=== PATIENT | male | born 1965 | race Caucasian/White ===

== ENCOUNTER 2019-04-04 06:35 | Emergency (ER) | payer OTHER ==
[~2019-04-04] VITALS: Ht 175.3 cm; Wt 95.2 kg
[2019-04-04] MEDS ORDERED: ASPIRIN 81 MG TABLET CHEW PO ONE (07:00)
--- NOTE | 2019-04-04 07:00 | NUR ---
Report to Destini HENDRIKCSON.
[2019-04-04] MEDS ORDERED: ASPIRIN 81 MG TABLET CHEW ONE (07:03)
[2019-04-04 07:09] LABS: BASOPHILS # (AUTO) 0.02 x10^3/uL (0-0.1); BASOPHILS % (AUTO) 0 % (0-1); EOSINOPHILS # (AUTO) 0.04 x10^3/uL (0-0.4); EOSINOPHILS % (AUTO) 1 % (1-7); LYMPHOCYTES # (AUTO) 1.62 x10^3/uL (1-3.4); LYMPHOCYTES % (AUTO) 29 % (22-44); MD NO; MEAN CORPUSCULAR HEMOGLOBIN 27.8 pg (27.5-34.5); MEAN CORPUSCULAR HGB CONC 33.1 g/dL (33.2-36.2); MEAN CORPUSCULAR VOLUME 84.2 fL (81-97); MEAN PLATELET VOLUME 9.8 fL (7.4-10.4); MONOCYTES # (AUTO) 0.25 x10^3/uL (0.2-0.8); MONOCYTES % (AUTO) 5 % (2-9); NEUTROPHILS # (AUTO) 3.68 x10^3/uL (1.8-6.8); NEUTROPHILS % (AUTO) 66 % (42-75); PLATELET COUNT 185 x10^3/uL (130-400); RED BLOOD COUNT 6.21 x10^6/uL (4.38-5.82); RED CELL DISTRIBUTION WIDTH 12.6 % (9.4-14.8)
--- NOTE | 2019-04-04 07:18 | NUR ---
PT RESTING ON GURNEY. NO CP REPORTED AT THIS TIME, VSS. PT STATES HE HAS "SOME PRESSURE IN CHEST" PT TOOK 325MG OF ASA AT HOME PRIOR TO COMING TO ER. REDD
[2019-04-04 07:21] LABS: ANION GAP 4 mmol/L (5-15); CALCIUM 9.5 mg/dL (8.5-10.1); CHLORIDE 102 mmol/L (98-107); CREATININE 1.21 mg/dL (0.7-1.3)
[2019-04-04 07:24] LABS: TROPONIN I < 0.015 ng/mL (0.000-0.045)
--- NOTE | 2019-04-04 08:11 | NUR ---
PT RESTING ON GURNEY AT THIS TIME, VSS, NAD. NO NEEDS AT THIS TIME
--- NOTE | 2019-04-04 08:39 | NUR ---
PT RESTING IN BED. PER REPEAT TROP AT 9:30
--- NOTE | 2019-04-04 09:24 | NUR ---
NO NEEDS AT THIS TIME, NAD, WILL CTM
[2019-04-04 10:27] LABS: TROPONIN I < 0.015 ng/mL (0.000-0.045)
[2019-04-04 10:28] VITALS: BP 102/60
--- NOTE | 2019-04-04 10:29 | NUR ---
AWAITING RESULT OF REPEAT TROPONIN LEVEL, PT RESTING, NAD.
--- NOTE | 2019-04-04 11:44 | NUR ---
PT WITH NEG TROP, D/C ORDERS RECIEVED. PT GIVEN DISCHARGE INSTRUCTIONS, UNDERSTANDING STATED. PT TO CHECK OUT WITH ALL BELONGINGS IN PLACE
== END 2019-04-04 11:48 | disposition home or self-care (01) ==
LOC: ED 09:40
DX: R07.89 Other chest pain (principal); R00.2 Palpitations; E11.65 Type 2 diabetes mellitus with hyperglycemia; E78.5 Hyperlipidemia, unspecified
CPT/HCPCS: 36415; 71046; 80048; 82040; 82962; 84484; 85025; 93005; 99284

== ENCOUNTER 2019-04-22 09:04 | Outpatient (CLI) | payer OTHER ==
[2019-04-22 09:20] LABS: BASOPHILS # (AUTO) 0.03 x10^3/uL (0-0.1); BASOPHILS % (AUTO) 1 % (0-1); EOSINOPHILS # (AUTO) 0.03 x10^3/uL (0-0.4); EOSINOPHILS % (AUTO) 0 % (1-7); LYMPHOCYTES # (AUTO) 1.99 x10^3/uL (1-3.4); LYMPHOCYTES % (AUTO) 29 % (22-44); MD NO; MEAN CORPUSCULAR HEMOGLOBIN 27.9 pg (27.5-34.5); MEAN CORPUSCULAR HGB CONC 33.1 g/dL (33.2-36.2); MEAN CORPUSCULAR VOLUME 84.3 fL (81-97); MEAN PLATELET VOLUME 9.2 fL (7.4-10.4); MONOCYTES # (AUTO) 0.33 x10^3/uL (0.2-0.8); MONOCYTES % (AUTO) 5 % (2-9); NEUTROPHILS # (AUTO) 4.47 x10^3/uL (1.8-6.8); NEUTROPHILS % (AUTO) 65 % (42-75); PLATELET COUNT 203 x10^3/uL (130-400); RED BLOOD COUNT 6.41 x10^6/uL (4.38-5.82); RED CELL DISTRIBUTION WIDTH 13.3 % (9.4-14.8)
[2019-04-22 09:28] LABS: ANION GAP 6 mmol/L (5-15); CALCIUM 9.2 mg/dL (8.5-10.1); CHLORIDE 105 mmol/L (98-107)
[2019-04-22 09:29] LABS: ALANINE AMINOTRANSFERASE 29 U/L (12-78); ALBUMIN 4.2 g/dL (3.4-5.0); CHOLESTEROL, TOTAL 160 mg/dL (140-239)
[2019-04-22 09:31] LABS: ALKALINE PHOSPHATASE 89 U/L (45-117); BILIRUBIN,TOTAL 0.6 mg/dL (0.2-1.0); HDL CHOL % 25 % (26-37); HDL CHOLESTEROL (DIRECT) 40 mg/dL (40-60); LDL CHOLESTEROL,CALCULATED 103 mg/dL (54-169); LDL/HDL RATIO 2.6 (0.5-3.0); TOTAL PROTEIN 7.6 g/dL (6.4-8.2); TRIGLYCERIDES 85 mg/dL (50-200); VLDL CHOLESTEROL 17 mg/dL (0-25)
[2019-04-22 12:25] LABS: HEMOGLOBIN A1C 10.7 % (4.2-6.3)
== END 2019-04-22 23:59 | disposition home or self-care (01) ==
LOC: LAB 09:04
PROVIDERS: ATTEND Family Medicine
DX: E11.9 Type 2 diabetes mellitus without complications (principal)
CPT/HCPCS: 36415; 80053; 80061; 82043; 83036; 85025

== ENCOUNTER → 2020-10-14 | Outpatient (CLI) | payer OTHER | END | disposition home or self-care (01) | LOC: RAD 18:11 | PROVIDERS: ATTEND Family Medicine | DX: M47.27 Other spondylosis with radiculopathy, lumbosacral region (principal); M51.16 Intervertebral disc disorders with radiculopathy, lumbar region | CPT/HCPCS: 72114 ==

== ENCOUNTER 2021-01-05 12:27 | Emergency (ER) | payer OTHER ==
[~2021-01-05] VITALS: Ht 175.3 cm; Wt 88.9 kg
--- NOTE | 2021-01-05 12:54 | NUR ---
PT CAME IN CO DIZZINESS AND NAUSEA THAT STARTED THIS MORNING WHEN HE WAS EATING BREAKFAST. UPON WALKING TO ER PT STATED HE FELT DIZZY AND ALMOST FELL OVER. EKG COMPLETE. PT RESTING IN [facility] CONNECTED TO ALL MONITORING EQUIPMENT.
[2021-01-05] MEDS ORDERED: MECLIZINE CHEWABLE 25 MG TAB ONE (12:57)
[2021-01-05] MEDS ORDERED: ONDANSETRON ODT 4 MG ONE (12:57)
[2021-01-05] MEDS ORDERED: MECLIZINE CHEWABLE 25 MG TAB PO ONE (13:00)
[2021-01-05] MEDS ORDERED: ONDANSETRON ODT 4 MG PO ONE (13:00)
[2021-01-05 13:02] LABS: BASOPHILS % (AUTO) 1 % (0-1); EOSINOPHILS % (AUTO) 0 % (1-7); LYMPHOCYTES % (AUTO) 22 % (22-44); MEAN CORPUSCULAR HEMOGLOBIN 27.7 pg (27.5-34.5); MEAN CORPUSCULAR HGB CONC 33.3 g/dL (33.2-36.2); MEAN PLATELET VOLUME 9.2 fL (7.4-10.4); MONOCYTES % (AUTO) 5 % (2-9); NEUTROPHILS % (AUTO) 73 % (42-75); PLATELET COUNT 193 x10^3/uL (130-400); RED BLOOD COUNT 6.63 x10^6/uL (4.38-5.82); RED CELL DISTRIBUTION WIDTH 13.4 % (9.4-14.8)
[2021-01-05 13:08] LABS: MD NO
[2021-01-05 13:11] LABS: ALBUMIN 4.3 g/dL (3.4-5.0); ANION GAP 7 mmol/L (5-15); CALCIUM 9.1 mg/dL (8.5-10.1); CHLORIDE 101 mmol/L (98-107); CREATININE 1.22 mg/dL (0.7-1.3)
--- NOTE | 2021-01-05 13:24 | NUR ---
PT STATES "I DONT FEEL NAUESOUS". PT RESTING IN [facility]. AWAITING MRI
--- NOTE | 2021-01-05 13:33 | NUR ---
PT TO MRI AT THIS TIME
[2021-01-05] MEDS ORDERED: DIAZEPAM 5 MG/ML, 2ML ONE (14:26)
--- NOTE | 2021-01-05 14:41 | NUR ---
PT MEDICATED PER DEC. THE ORDER WAS FOR 2.5MG VALIUM. THIS RN WASTED 5MG VALIUM ON OMNICELL WITH AMILCAR Miguel RN. BEFORE ADM OF VALIUM, REALIZED PT WAS TO RECIEVE 2.5MG AND NOT 5MG VALIUM. WASTED 2.5MG VALIUM WITH DORIS Miguel RN ON "NARC SHEET". PT RESTING IN [facility]. NAD.
[2021-01-05] MEDS ORDERED: SODIUM CHLORIDE 0.9% 1,000ML IV ONE (15:00)
[2021-01-05] MEDS ORDERED: DIAZEPAM 5 MG/ML, 2ML IVPush ONE (15:00)
--- NOTE | 2021-01-05 15:06 | NUR ---
REPORT FROM POOJA HENDRICKSON
[2021-01-05] MEDS ORDERED: SODIUM CHLORIDE FLUSH 10ML SYR IVF ONE (15:30)
[2021-01-05 15:44] VITALS: BP 93/59
== END 2021-01-05 15:45 | disposition home or self-care (01) ==
LOC: ED 13:09
DX: H81.391 Other peripheral vertigo, right ear (principal); H81.11 Benign paroxysmal vertigo, right ear; E78.5 Hyperlipidemia, unspecified; E11.9 Type 2 diabetes mellitus without complications
CPT/HCPCS: 36415; 70551; 80048; 82040; 85025; 93005; 96361; 96374; 99285; J3360; J7030; Q0162